=== PATIENT | female | born 1990 | race African-American/Black ===

== ENCOUNTER 2016-09-24 22:47 | Emergency (ER) | payer MEDICAID, OTHER ==
[~2016-09-24] VITALS: Ht 162.6 cm; Wt 110.7 kg
[~2016-09-24 22:47] MED LIST: CIPROFLOXACIN500 M2 ORAL; IBUPROFEN600 MG ORAL; MACROBID100 MG ORAL; METRONIDAZOLE500 MG ORAL; NEXAFED30 MG ORAL; PEPCID40 MG PO; PROMETHAZINE-C118 M1 ORAL
[2016-09-24 23:06] VITALS: BP 116/81
[2016-09-24] MEDS ORDERED: IBUPROFEN600 MG ORAL (23:38)
[2016-09-24] MEDS ORDERED: AZITHROMYCIN250 MG ORAL (23:38)
--- NOTE | 2016-09-24 23:38 | Emergency Room Report ---
History of Present Illness General Chief Complaint: Sore Throat Source: Patient Present Illness HPI Is a 26-year-old female with no past medical history. She presents with chief complaint of sore throat. Woke up this morning with it. Vale swelling on the right side. Denies any fever chills denies any nausea vomiting. Worse with swallowing. Pain is 5/10. Allergies: Coded Allergies: No Known Allergies (Unverified , 11/17/14) Patient History Past Medical History: see triage record, old chart reviewed Past Surgical History: none Pertinent Family History: none Social History: Denies: smoking Last Menstrual Period: September 09 Now: No : 0 Para: 0 Immunizations: other Reviewed Nursing Documentation: PMH: Agreed, PSxH: Agreed Nursing Documentation-PMH Past Medical History: No Stated History Hx Asthma: Yes Hx Gastrointestinal Problems: Yes - ACID REFLUX Review of Systems Eye: Denies: blurred vision, eye pain ENT: Reports: throat swelling, Denies: ear pain, nose congestion Respiratory: Denies: cough, shortness of breath Cardiovascular: Denies: chest pain, palpitations Gastrointestinal: Denies: abdominal pain, diarrhea, nausea, vomiting Musculoskeletal: Denies: back pain, joint pain Skin: Denies: rash Neurological: Denies: headache, numbness Endocrine: Denies: increased thirst, increased urine Hematologic/Lymphatic: Denies: easy bruising All Other Systems: negative except mentioned in HPI Physical Exam Vital Signs Date Time Temp Pulse Resp B/P Pulse Ox O2 Delivery O2 Flow Rate FiO2 09/24/16 22:53 98.4 84 18 116/81 97 Room Air vitals normal. Sp02 EP Interpretation: reviewed, normal General Appearance: well appearing, no apparent distress, alert Head: normocephalic, atraumatic Eyes: bilateral eye EOMI, bilateral eye PERRL ENT: hearing grossly normal, pharyngeal erythema, tonsillar exudate - right Neck: full range of motion, supple, no meningismus Respiratory: chest non-tender, lungs clear, normal breath sounds Cardiovascular #1: regular rate, rhythm, no murmur Gastrointestinal: normal bowel sounds, non tender, no mass, no organomegaly, no bruit, non-distended Musculoskeletal: back normal, gait/station normal, normal range of motion Psychiatric: mood/affect normal Skin: warm/dry Medical Decision Making Diagnostic Impression: Primary Impression: Pharyngitis, acute Qualified Codes: J02.9 - Acute pharyngitis, unspecified ER Course Patient presents with sore throat. Most likely a viral pharyngitis. Could be strep. Notice of peritonsillar abscess, retropharyngeal abscess or neoplastic process. Notice of Fernando angina. We'll discharge him. Last Vital Signs Date Time Temp Pulse Resp B/P Pulse Ox O2 Delivery O2 Flow Rate FiO2 09/24/16 23:06 98.4 80 18 116/81 97 Room Air Status: improved Disposition: HOME, SELF-CARE Condition: Stable Scripts Azithromycin* (ZITHROMAX*) 250 Mg Tablet 250 MG ORAL DAILY, #6 TAB 0 Refills Take two tablets by mouth today, then take one tablet by mouth daily for four days Prov: LISANDRO CISSE M.D. 09/24/16 Ibuprofen* (MOTRIN*) 600 Mg Tablet 600 MG ORAL Q8H Y for For Pain, #30 TAB 0 Refills Prov: LISANDRO CISSE M.D. 09/24/16 Referrals: NON PHYSICIAN (PCP) Patient Instructions: Tonsillitis Additional Instructions: Follow up with your doctor in 7 days. Return if worse. LISANDRO CISSE M.D. Sep 24, 2016 23:38
[2016-09-24 23:58] VITALS: BP 121/85
== END 2016-09-24 23:59 | disposition home or self-care (01) ==
LOC: EMR 23:15
DX: J02.9 Acute pharyngitis, unspecified (principal); Z87.19 Personal history of other diseases of the digestive system; Z87.09 Personal history of other diseases of the respiratory system
CPT/HCPCS: 99284

== ENCOUNTER 2016-10-19 15:29 | Emergency (ER) | payer OTHER ==
[~2016-10-19] VITALS: Ht 162.6 cm; Wt 107.5 kg
[~2016-10-19 15:29] MED LIST changes: +AZITHROMYCIN250 MG ORAL
[2016-10-19] MEDS ORDERED: Lidocaine 2% Visc 15ml soln ORAL ONE (16:30)
[2016-10-19] MEDS ORDERED: Mylanta II UD 30ml ORAL ONE (16:30)
[2016-10-19] MEDS ORDERED: Dicyclomine HCl 10mg/5ml oral soln ORAL ONE (16:30)
[2016-10-19 16:49] LABS: APPEARANCE,URINE SLIGHTLY CLOUDY; KETONES,URINE NEGATIVE (NEGATIVE); LEUKOCYTE ESTERASE ,URINE 2+ (NEGATIVE); NITRITE,URINE POSITIVE (NEGATIVE); PH,URINE 5 (4.5-8.0); PROTEIN,URINE 2+ (NEGATIVE); UROBILINOGEN,URINE NORMAL MG/DL (0.0-1.0)
[2016-10-19 16:53] LABS: BACTERIA,URINE MODERATE /HPF; SQUAMOUS EPITHELIAL CELL,UR FEW /LPF (NONE/OCC)
[2016-10-19] MEDS ORDERED: NITROFURANTOIN100 M2 ORAL (17:33)
[2016-10-19] MEDS ORDERED: ZOFRAN4 M3 ORAL (17:33)
[2016-10-19] MEDS ORDERED: PEPCID20 MG ORAL (17:33)
[2016-10-19 18:00] VITALS: BP 109/74
--- NOTE | 2016-10-19 21:36 | Emergency Room Report ---
History of Present Illness General Chief Complaint: General Complaint Source: Patient Present Illness HPI The patient is a 26-year-old female presenting with dizziness, nausea, and chest burning. The patient states that she has had GERD in the past and this does feel similar. The patient has not tried any medications for this. Patient denies any other symptoms including vomiting, F, chills, LEONARD, blurred vision, abd pain, dysuria, hematuria, back pain, fatigue, CP, palpitations Allergies: Coded Allergies: No Known Allergies (Unverified , 11/17/14) Patient History Past Medical History: see triage record Pertinent Family History: none Last Menstrual Period: 10/07/16 Now: No Reviewed Nursing Documentation: PMH: Agreed, PSxH: Agreed Nursing Documentation-PMH Past Medical History: No History, Except For Hx Asthma: Yes Hx Gastrointestinal Problems: Yes - ACID REFLUX Review of Systems All Other Systems: negative except mentioned in HPI Physical Exam Vital Signs Date Time Temp Pulse Resp B/P Pulse Ox O2 Delivery O2 Flow Rate FiO2 10/19/16 15:59 98.4 96 16 117/78 100 Room Air Sp02 EP Interpretation: reviewed, normal General Appearance: no apparent distress, alert, GCS 15, non-toxic Head: normocephalic, atraumatic Eyes: bilateral eye PERRL, bilateral eye normal inspection ENT: hearing grossly normal, normal pharynx, no angioedema, normal voice Neck: full range of motion, supple/symm/no masses Respiratory: chest non-tender, lungs clear, normal breath sounds, speaking full sentences Cardiovascular #1: regular rate, rhythm, no edema Gastrointestinal: normal bowel sounds, non tender, soft, non-distended, no guarding, no rebound Rectal: deferred Genitourinary: normal inspection, no CVA tenderness Musculoskeletal: back normal, gait/station normal, normal range of motion, non- tender Neurologic: alert, oriented x3, responsive, motor strength/tone normal, sensory intact, speech normal Psychiatric: judgement/insight normal, memory normal, mood/affect normal, no suicidal/homicidal ideation Skin: normal color, no rash, warm/dry, well hydrated Lymphatic: no adenopathy Medical Decision Making PA Attestation Dr. Francis is my supervising physician. Patient management was discussed with my supervising physician Diagnostic Impression: Primary Impression: Urinary tract infection Additional Impression: GERD (gastroesophageal reflux disease) ER Course The patient is a 26-year-old female presenting with dizziness, nausea, and chest burning Differential diagnosis considered but not limited to: UTI, vaginitis, pyelonephritis, , GERD PE: Vitals within normal limits. No apparent distress HEENT exam: Unremarkable. Lungs CTA bilat. RRR Abdomen is soft and nontender. Normal bowel sounds. No CVA tenderness Urinalysis is consistent with UTI. The patient was given a GI cocktail and Reglan and is feeling better. Patient will be discharged home with a prescription for Macrobid, zofran, and Pepcid. ER precautions are given Laboratory Tests Test 10/19/16 16:26 Urine Color Pale yellow Urine Appearance Slightly cloudy Urine pH 5 (4.5-8.0) Urine Specific Johnson 1.020 (1.005-1.035) Urine Protein 2+ (NEGATIVE) H Urine Glucose (UA) Negative (NEGATIVE) Urine Ketones Negative (NEGATIVE) Urine Occult Blood 3+ (NEGATIVE) H Urine Nitrite Positive (NEGATIVE) H Urine Bilirubin Negative (NEGATIVE) Urine Urobilinogen Normal MG/DL (0.0-1.0) Urine Leukocyte Esterase 2+ (NEGATIVE) H Urine RBC 10-15 /HPF (0 - 2) H Urine WBC 5-10 /HPF (0 - 2) H Urine Squamous Epithelial Cells Few /LPF (NONE/OCC) Urine Bacteria Moderate /HPF (NONE) H Urine HCG, Qualitative Negative Lab Results Impression UA: consistent with UTI. Neg preg Last Vital Signs Date Time Temp Pulse Resp B/P Pulse Ox O2 Delivery O2 Flow Rate FiO2 10/19/16 18:00 89 16 109/74 100 Room Air 10/19/16 17:59 98.4 Status: improved Disposition: HOME, SELF-CARE Condition: Improved Scripts Famotidine (PEPCID) 20 Mg Tablet 20 MG ORAL DAILY, #7 TAB 0 Refills Prov: TERZIAN,ANJALI P.A. 10/19/16 Ondansetron* (ZOFRAN*) 4 Mg Tablet 4 MG ORAL Q6H Y for Nausea & Vomiting, #15 TAB Prov: TERZIAN,ANJALI P.A. 10/19/16 Nitrofurantoin Monohyd/M-Cryst* (MACROBID 100 MG*) 100 Mg Capsule 100 MG ORAL EVERY 12 HOURS, #14 CAP Prov: TERZIAN,ANJALI P.A. 10/19/16 Referrals: [facility]ERR[facility] (PCP) Patient Instructions: Urinary Tract Infection, Indigestion Additional Instructions: I discussed my findings with the patient. All questions and concerns have been answered. Treatment and medication compliance have been addressed. I advised the patient that they need to follow up with PMD in 3-5 days. Return to ED if symptoms worsen, new symptoms arise, or if needed for any reason. Patient verbalized understanding of discharge instructions. ANJALI MEJIAS Oct 19, 2016 21:36
== END 2016-10-19 18:01 | disposition home or self-care (01) ==
LOC: EMR 17:37
DX: N39.0 Urinary tract infection, site not specified (principal); K21.9 Gastro-esophageal reflux disease without esophagitis; R42 Dizziness and giddiness; R11.0 Nausea; J45.909 Unspecified asthma, uncomplicated
CPT/HCPCS: 81003; 81025; 87086; 87181; 99284

== ENCOUNTER 2016-11-10 20:54 | Emergency (ER) | payer OTHER ==
[~2016-11-10] VITALS: Ht 162.6 cm; Wt 106.6 kg
[~2016-11-10 20:54] MED LIST changes: +NITROFURANTOIN100 M2 ORAL; +PEPCID20 MG ORAL; +ZOFRAN4 M3 ORAL
[2016-11-10] MEDS ORDERED: Bacitracin Oint UD TOPIC ONE ×2 (21:56→22:00)
[2016-11-10 22:04] VITALS: BP 119/72
[2016-11-10 22:05] VITALS: BP 116/69
--- NOTE | 2016-11-11 01:42 | Emergency Room Report ---
History of Present Illness General Chief Complaint: Laceration Source: Patient Present Illness HPI 26-year-old female presents to ED with laceration to the right wrist. Patient states she had a mechanical fall in the bathroom today and cut her wrist on broken glass. Tetanus unknown. Denies any pain. Notes some bleeding initially which has subsided. Denies any other injuries. No other aggravating relieving factors. Denies any other associated symptoms Allergies: Coded Allergies: No Known Allergies (Unverified , 11/17/14) Patient History Past Medical History: asthma, GERD Past Surgical History: none Pertinent Family History: none Social History: Denies: alcohol use, drug use, smoking Now: No Immunizations: UTD Reviewed Nursing Documentation: PMH: Agreed, PSxH: Agreed Nursing Documentation-PMH Past Medical History: No Stated History Hx Asthma: Yes Hx Gastrointestinal Problems: Yes - ACID REFLUX Review of Systems All Other Systems: negative except mentioned in HPI Physical Exam Vital Signs Date Time Temp Pulse Resp B/P Pulse Ox O2 Delivery O2 Flow Rate FiO2 11/10/16 21:06 98.4 111 15 116/69 98 Room Air Sp02 EP Interpretation: reviewed, normal General Appearance: no apparent distress, alert, GCS 15, non-toxic, obese Head: normocephalic Eyes: bilateral eye PERRL, bilateral eye normal inspection ENT: normal ENT inspection Neck: normal inspection Respiratory: normal inspection Cardiovascular #1: normal inspection Gastrointestinal: normal inspection Rectal: deferred Genitourinary: no CVA tenderness Musculoskeletal: back normal, gait/station normal, normal range of motion, non- tender Neurologic: alert, oriented x3, responsive, motor strength/tone normal, sensory intact, speech normal Psychiatric: normal inspection Skin: laceration - 3cm superficial laceration to R wrist. no active bleeding Lymphatic: normal inspection Medical Decision Making Diagnostic Impression: Primary Impression: Laceration ER Course Hospital Course 26-year-old F presents to ED s/p laceration R wrist s/p fall Clinical course Patient placed on stretcher. After initial history and physical I ordered tetanus shot. Wound is irrigated. The laceration is very superficial and does not require sutures. Steri-Strips and dressings applied Diagnosis - laceration Stable and discharged to home. wound Care instructions given. Followup with PMD. Return to ED if any signs of infection develop Last Vital Signs Date Time Temp Pulse Resp B/P Pulse Ox O2 Delivery O2 Flow Rate FiO2 11/10/16 22:05 98.4 15 116/69 98 Room Air 11/10/16 22:04 106 Status: improved Disposition: HOME, SELF-CARE Condition: Stable Referrals: NON PHYSICIAN (PCP) Patient Instructions: Nonsutured Laceration Care TOM MACHADO M.D. Nov 11, 2016 01:42
== END 2016-11-10 22:15 | disposition home or self-care (01) ==
LOC: EMR 21:40
DX: S61.511A Laceration without foreign body of right wrist, initial encounter (principal); J45.909 Unspecified asthma, uncomplicated; K21.9 Gastro-esophageal reflux disease without esophagitis; W01.110A Fall on same level from slipping, tripping and stumbling with subsequent striking against sharp glass, initial encounter; Y92.002 Bathroom of unspecified non-institutional (private) residence as the place of occurrence of the external cause; Y99.8 Other external cause status
CPT/HCPCS: 99283

== ENCOUNTER 2017-01-14 20:53 | Emergency (ER) | payer OTHER ==
[~2017-01-14] VITALS: Ht 162.6 cm; Wt 108.9 kg
--- NOTE | 2017-01-14 21:23 | Emergency Room Report ---
History of Present Illness General Chief Complaint: Flu Like Symptoms Source: Patient Present Illness HPI Is a 26-year-old female with history of asthma as a kid. She's on any medication right now. She presents with chief complaint of coughing congestion. Onset 3 days ago. She does have a coworker who is sick with bronchitis. No nausea no vomiting. Cough is nonproductive in nature. No fever or chills. No abdominal pain. Allergies: Coded Allergies: No Known Allergies (Unverified , 11/17/14) Patient History Past Medical History: see triage record, old chart reviewed Past Surgical History: other Pertinent Family History: none Social History: Denies: smoking Last Menstrual Period: December Now: No Immunizations: other Reviewed Nursing Documentation: PMH: Agreed, PSxH: Agreed Nursing Documentation-PMH Hx Asthma: Yes Hx Gastrointestinal Problems: Yes - ACID REFLUX Review of Systems Eye: Denies: blurred vision, eye pain ENT: Denies: ear pain, nose congestion, throat swelling Respiratory: Reports: cough, shortness of breath Cardiovascular: Denies: chest pain, palpitations Gastrointestinal: Denies: abdominal pain, diarrhea, nausea, vomiting Musculoskeletal: Denies: back pain, joint pain Skin: Denies: rash Neurological: Denies: headache, numbness Endocrine: Denies: increased thirst, increased urine Hematologic/Lymphatic: Denies: easy bruising All Other Systems: negative except mentioned in HPI Physical Exam Vital Signs Date Time Temp Pulse Resp B/P Pulse Ox O2 Delivery O2 Flow Rate FiO2 01/14/17 21:00 98.6 101 20 127/81 98 Room Air vitals normal Sp02 EP Interpretation: reviewed, normal General Appearance: well appearing, no apparent distress, alert Head: normocephalic, atraumatic Eyes: bilateral eye EOMI, bilateral eye PERRL ENT: hearing grossly normal, normal pharynx Neck: full range of motion, supple, no meningismus Respiratory: chest non-tender, lungs clear, normal breath sounds Cardiovascular #1: regular rate, rhythm, no murmur Gastrointestinal: normal bowel sounds, non tender, no mass, no organomegaly, no bruit, non-distended Musculoskeletal: back normal, gait/station normal, normal range of motion Psychiatric: mood/affect normal Skin: warm/dry Medical Decision Making Diagnostic Impression: Primary Impression: Acute viral bronchitis ER Course Patient presents with a viral bronchitis. No evidence of pneumonia. Notice any sepsis. Because of her asthma history. We'll put her on inhaler. I also will prescribe prednisone. Told patient to take this if symptoms don't improve after 2 days. No evidence of ACS, PE, pneumonia to name a few. Last Vital Signs Date Time Temp Pulse Resp B/P Pulse Ox O2 Delivery O2 Flow Rate FiO2 01/14/17 21:00 98.6 101 20 127/81 98 Room Air Status: unchanged Disposition: HOME, SELF-CARE Condition: Stable Scripts Pseudoephedrine Hcl* (NEXAFED*) 30 Mg Tablet 60 MG ORAL Q6H Y for congestion, #30 TAB Prov: LISANDRO CISSE M.D. 01/14/17 Prednisone* (PREDNISONE*) 20 Mg Tablet 60 MG ORAL DAILY, #15 TAB Prov: LISANDRO CISSE M.D. 01/14/17 Albuterol Sulfate* (ALBUTEROL SULFATE MDI*) 8.5 Gm Hfa.aer.ad 2 PUFF INH Q4H Y for cough/wheezing, #1 EA 0 Refills Prov: LISANDRO CISSE M.D. 01/14/17 Additional Instructions: Followup with your DrTracie in 7 days. Return if worse. LISANDRO CISSE M.D. Jan 14, 2017 21:23
[2017-01-14] MEDS ORDERED: ALBUTEROL SULF8.5 GM INH (21:26)
[2017-01-14] MEDS ORDERED: PREDNISONE20 MG ORAL (21:26)
[2017-01-14] MEDS ORDERED: NEXAFED30 MG ORAL (21:26)
[2017-01-14 21:51] VITALS: BP 127/88
== END 2017-01-14 21:51 | disposition home or self-care (01) ==
LOC: EMR 21:50
DX: J20.8 Acute bronchitis due to other specified organisms (principal); J45.909 Unspecified asthma, uncomplicated; K21.9 Gastro-esophageal reflux disease without esophagitis
CPT/HCPCS: 99284

== ENCOUNTER 2017-02-17 13:35 | Emergency (ER) | payer OTHER ==
[~2017-02-17] VITALS: Ht 162.6 cm; Wt 108.9 kg
[~2017-02-17 13:35] MED LIST changes: +ALBUTEROL SULF8.5 GM INH; +PREDNISONE20 MG ORAL
[2017-02-17] MEDS ORDERED: TRI-LINYAH1 EACH PO (13:51)
[2017-02-17] MEDS ORDERED: NEXIUM20 M1 ORAL (13:51)
[2017-02-17 13:54] VITALS: BP 120/84
[2017-02-17] MEDS ORDERED: Ondansetron ODT 8mg tab ORAL ONE (14:15)
[2017-02-17] MEDS ORDERED: Norco 5mg/325mg tab ORAL ONE (14:15)
--- NOTE | 2017-02-17 14:51 | Emergency Room Report ---
History of Present Illness General Chief Complaint: Pain Source: Patient Present Illness HPI patient is a 26-year-old female presenting with left lower extremity, calf pain. Patient denies any trauma. She is taking Dilaudid at home without any relief. The patient states it's worse with ambulation, there are no alleviating factors. She feels like her left calf is mildly swollen compared to the right. Denies any rash or redness. Allergies: Coded Allergies: No Known Allergies (Unverified , 11/17/14) Patient History Past Medical History: other - sickle trait Past Surgical History: none Pertinent Family History: none Last Menstrual Period: 01/27/17 Now: No Nursing Documentation-[facility] [place] Past Medical History: No Stated History Hx Asthma: Yes Hx Gastrointestinal Problems: Yes - ACID REFLUX Review of Systems Constitutional: Denies: chills, fever Respiratory: Denies: cough Musculoskeletal: Reports: see HPI Skin: Denies: change in color, rash Physical Exam Vital Signs Date Time Temp Pulse Resp B/P Pulse Ox O2 Delivery O2 Flow Rate FiO2 02/17/17 13:44 98.6 90 16 120/84 98 Room Air Sp02 EP Interpretation: reviewed, normal General Appearance: normal inspection, well appearing, no apparent distress Musculoskeletal: normal inspection, calf tenderness, swelling Neurologic: motor strength/tone normal, sensory intact Skin: normal inspection, normal color, no rash Medical Decision Making Diagnostic Impression: Primary Impression: Muscle strain ER Course patient is a 26-year-old female who presents with left calf pain. She states the pain worse with ambulation or putting pressure on the leg. Given her history of oral contraceptives I was concerned for DVT. The patient had an ultrasound performed in the department which showed no evidence of DVT. At this point I feel comfortable sending the patient home to follow with her primary care physician. Last Vital Signs Date Time Temp Pulse Resp B/P Pulse Ox O2 Delivery O2 Flow Rate FiO2 02/17/17 13:54 98.6 90 16 120/84 98 Room Air Disposition: HOME, SELF-CARE Condition: Stable SAMMIE SHOEMAKER Feb 17, 2017 14:51
[2017-02-17] MEDS ORDERED: PROMETHAZINE-C118 M1 ORAL (17:06)
[2017-02-17] MEDS ORDERED: NORCO 5-325 TA1 EACH ORAL (17:07)
[2017-02-17 17:11] VITALS: BP 147/75
--- NOTE | 2017-02-18 14:27 | Diagnostic Imaging Report ---
APPROVED REPORT CPT Code: 83311 Present Symptoms Comments: Pain LEFT LEG: Venous imaging reveals a patent deep venous system. There is no evidence of thrombus within the femoral, popliteal or tibial segments. The greater saphenous vein is also within normal limits. Doppler indicates normal spontaneous flow within these segments.
== END 2017-02-17 17:20 | disposition home or self-care (01) ==
LOC: EMR 14:05
DX: S86.112A Strain of other muscle(s) and tendon(s) of posterior muscle group at lower leg level, left leg, initial encounter (principal); X58.XXXA Exposure to other specified factors, initial encounter; Y92.9 Unspecified place or not applicable; J45.909 Unspecified asthma, uncomplicated; K21.9 Gastro-esophageal reflux disease without esophagitis; R21 Rash and other nonspecific skin eruption
CPT/HCPCS: 93971; 99284; Q0162

== ENCOUNTER 2017-02-19 20:16 | Emergency (ER) | payer OTHER ==
[~2017-02-19] VITALS: Ht 162.6 cm; Wt 108.9 kg
[~2017-02-19 20:16] MED LIST changes: +NEXIUM20 M1 ORAL; +NORCO 5-325 TA1 EACH ORAL; +TRI-LINYAH1 EACH PO
[2017-02-19 20:50] VITALS: BP 112/76
[2017-02-19] MEDS ORDERED: Albuterol ud Inhalation HHN ONE (21:00)
[2017-02-19] MEDS ORDERED: Ipratropium 0.02% Inh Soln 2.5ml UD HHN ONE (21:00)
[2017-02-19] MEDS ORDERED: PredniSONE 20mg tab ORAL ONE (21:00)
[2017-02-19] MEDS ORDERED: PREDNISONE20 MG ORAL (21:34)
[2017-02-19] MEDS ORDERED: ALBUTEROL SULF8.5 GM INH (21:34)
[2017-02-19] MEDS ORDERED: PROMETHAZINE-C118 M1 ORAL (21:34)
[2017-02-19] MEDS ORDERED: NEXAFED30 MG ORAL (21:34)
[2017-02-19 22:00] VITALS: BP 112/76
--- NOTE | 2017-02-20 13:07 | Diagnostic Imaging Report ---
Indication: PAIN Technique: 3 views of the left ankle Comparison: none Findings: No acute fractures. No dislocations. Joint spaces are preserved. Normal mineralization. No radiopaque foreign body. Impression: Negative
--- NOTE | 2017-02-20 15:00 | Emergency Room Report ---
History of Present Illness General Chief Complaint: Upper Respiratory Illness Source: Patient Present Illness HPI 26-year-old female presents to ED complaining of cough times one week. Notes cough with yellowish sputum. Worse at night. Notes history of asthma as a child but is not using inhaler currently. States she had a similar episode in January and was noted to have bronchitis. Patient states her symptoms did resolve completely but only return one week ago. Denies fevers or chills. Denies sick contacts or recent travel. Patient is also complaining of left ankle pain. States that she's been having this pain for a few days. Was here 2 days ago for the pain. Ultrasound of her leg which was "normal" and she was discharged home. States the pain persists. 03/21, sharp, radiating up the calf. No other aggravating or relieving factors. Denies any other associated symptoms Allergies: Coded Allergies: No Known Allergies (Unverified , 11/17/14) Patient History Past Medical History: asthma, GERD Past Surgical History: none Pertinent Family History: none Social History: Denies: alcohol use, drug use, smoking Last Menstrual Period: 01/27/17 Now: No Immunizations: UTD Reviewed Nursing Documentation: PMH: Agreed, PSxH: Agreed Nursing Documentation-PMH Past Medical History: No History, Except For Hx Asthma: Yes Hx Gastrointestinal Problems: Yes - ACID REFLUX Review of Systems All Other Systems: negative except mentioned in HPI Physical Exam Vital Signs Date Time Temp Pulse Resp B/P Pulse Ox O2 Delivery O2 Flow Rate FiO2 02/19/17 20:25 98.8 95 16 112/76 98 Room Air 02/19/17 21:00 21 Sp02 EP Interpretation: reviewed, normal General Appearance: no apparent distress, alert, GCS 15, non-toxic, obese Head: normocephalic Eyes: bilateral eye PERRL, bilateral eye normal inspection ENT: normal ENT inspection Neck: normal inspection Respiratory: chest non-tender, lungs clear, normal breath sounds, speaking full sentences Cardiovascular #1: regular rate, rhythm, no edema Gastrointestinal: normal inspection Rectal: deferred Genitourinary: no CVA tenderness Musculoskeletal: tender - L ankle Neurologic: alert, oriented x3, responsive, motor strength/tone normal, sensory intact, speech normal Psychiatric: judgement/insight normal, memory normal, mood/affect normal, no suicidal/homicidal ideation Skin: normal inspection Lymphatic: normal inspection Procedures Splinting Splinting : Consent: Verbal Pre-Made Type: JANES wrap - L ankle Pre-Proc Neuro Vasc Exam: normal Post-Proc Neuro Vasc Exam: normal Patient Tolerated: Well Complications: None Medical Decision Making Diagnostic Impression: Primary Impression: Bronchitis Additional Impression: Ankle pain, left Qualified Codes: M25.572 - Pain in left ankle and joints of left foot ER Course Hospital Course 26-year-old female presents to ED complaining of cough x 1 week. c/o L ankle pain Differential diagnoses include: URI, bronchitis, asthma/COPD, pneumonia Clinical course Patient placed on stretcher. After initial history and physical I ordered nebulizer treatment. Upon reassessment patient states cough and symptoms have improved. Findings consistent with bronchitis. Patient is complaining of pain to her left ankle. I reviewed EMR. Patient had ultrasound of her left leg; concern for potential DVT as patient takes oral contraceptives. DVT study was negative I ordered x-ray of the left ankle which was unremarkable. Placed in Janes wrap Diagnosis - bronchitis , left ankle pain Stable and discharged home with prescriptions for Rx prednisone, cough syrup, pseudoephedrine, albuterol. Instructed to followup with PMD. Return to ED if symptoms recur or worsen Other X-Ray Diagnostic Results Other X-Ray Diagnostic Results : X-Ray ordered: L ankle # of Views/Limited Vs Complete: 3 View Indication: Pain EP Interpretation: Yes Interpretation: no dislocation, no soft tissue swelling, no fractures Impression: No acute disease Interpreting ER Provider: electronically signed by Tom Francis mD Last Vital Signs Date Time Temp Pulse Resp B/P Pulse Ox O2 Delivery O2 Flow Rate FiO2 02/19/17 22:00 98.8 95 20 112/76 98 Room Air 21 Status: improved Disposition: HOME, SELF-CARE Condition: Stable Scripts Codeine/Promethazine Hcl* (PROMETHAZINE-CODEINE SYRUP*) 118 Ml Syrup 5 ML ORAL Q4H Y for For Cough, #118 ML 0 Refills Prov: TOM FRANCIS M.D. 02/19/17 Pseudoephedrine Hcl* (NEXAFED*) 30 Mg Tablet 30 MG ORAL Q6H Y for congestion, #30 TAB Prov: TOM FRANCIS M.D. 02/19/17 Prednisone* (PREDNISONE*) 20 Mg Tablet 40 MG ORAL DAILY, #10 TAB Prov: TOM FRANCIS M.D. 02/19/17 Albuterol Sulfate* (ALBUTEROL SULFATE MDI*) 8.5 Gm Hfa.aer.ad 2 PUFF INH Q4H Y for cough/wheezing, #1 EA 0 Refills Prov: TOM FRANCIS M.D. 02/19/17 Patient Instructions: Acute Bronchitis, [id number] TOM FRANCIS M.D. Feb 20, 2017 15:00
== END 2017-02-19 22:15 | disposition home or self-care (01) ==
LOC: EMR 20:46
DX: J20.9 Acute bronchitis, unspecified (principal); M25.572 Pain in left ankle and joints of left foot; J45.909 Unspecified asthma, uncomplicated; K21.9 Gastro-esophageal reflux disease without esophagitis
CPT/HCPCS: 29540; 94640; 99284

== ENCOUNTER 2017-02-28 20:54 | Emergency (ER) | payer OTHER ==
[~2017-02-28] VITALS: Ht 162.6 cm; Wt 108.9 kg
[2017-02-28] MEDS ORDERED: IBUPROFEN600 MG ORAL (21:31)
--- NOTE | 2017-02-28 21:32 | Emergency Room Report ---
History of Present Illness General Chief Complaint: Earache Source: Patient Present Illness HPI This is a 26-year-old female with a history of asthma. She presents with chief complaint of ear pain. Onset for the last few days. Does have congestion and cough. Pain is 7/10. Localized the left ear. No fever or chills. Here with 3 other siblings who have the same symptom. No other complaint. Allergies: Coded Allergies: No Known Allergies (Unverified , 11/17/14) Patient History Past Medical History: see triage record, old chart reviewed, asthma Past Surgical History: none Pertinent Family History: none Social History: Denies: drug use Last Menstrual Period: 02/24/17 Now: No Immunizations: other Reviewed Nursing Documentation: PMH: Agreed, PSxH: Agreed Nursing Documentation-PMH Past Medical History: No History, Except For Hx Gastrointestinal Problems: Yes - ACID REFLUX Review of Systems Eye: Denies: blurred vision, eye pain ENT: Reports: ear pain, Denies: nose congestion, throat swelling Respiratory: Denies: cough, shortness of breath Cardiovascular: Denies: chest pain, palpitations Gastrointestinal: Denies: abdominal pain, diarrhea, nausea, vomiting Musculoskeletal: Denies: back pain, joint pain Skin: Denies: rash Neurological: Denies: headache, numbness Endocrine: Denies: increased thirst, increased urine Hematologic/Lymphatic: Denies: easy bruising All Other Systems: negative except mentioned in HPI Physical Exam Vital Signs Date Time Temp Pulse Resp B/P Pulse Ox O2 Delivery O2 Flow Rate FiO2 02/28/17 21:14 98.4 108 16 124/69 100 Room Air vital unremarkable Sp02 EP Interpretation: reviewed, normal General Appearance: well appearing, no apparent distress, alert Head: normocephalic, atraumatic Eyes: bilateral eye EOMI, bilateral eye PERRL ENT: hearing grossly normal, normal pharynx Neck: full range of motion, supple, no meningismus Respiratory: chest non-tender, lungs clear, normal breath sounds Cardiovascular #1: regular rate, rhythm, no murmur Gastrointestinal: normal bowel sounds, non tender, no mass, no organomegaly, no bruit, non-distended Musculoskeletal: back normal, gait/station normal, normal range of motion Psychiatric: mood/affect normal Skin: warm/dry Medical Decision Making Diagnostic Impression: Primary Impression: Earache, left Additional Impression: Viral illness ER Course Patient with ear pain. No evidence of bacterial infection. Lungs are clear. We'll discharge home. Last Vital Signs Date Time Temp Pulse Resp B/P Pulse Ox O2 Delivery O2 Flow Rate FiO2 02/28/17 21:14 98.4 108 16 124/69 100 Room Air Status: improved Disposition: HOME, SELF-CARE Condition: Stable Scripts Ibuprofen* (MOTRIN*) 600 Mg Tablet 600 MG ORAL Q8H Y for For Pain, #30 TAB 0 Refills Prov: LISANDRO CISSE M.D. 02/28/17 Patient Instructions: Earache Additional Instructions: Followup with your Dr. in 7 days. Take Sudafed as needed. Return if symptom worsen. LISANDRO CISSE M.D. Feb 28, 2017 21:32
[2017-02-28 21:39] VITALS: BP 124/69
== END 2017-02-28 21:52 | disposition home or self-care (01) ==
LOC: EMR 21:30
DX: H92.02 Otalgia, left ear (principal); B34.9 Viral infection, unspecified
CPT/HCPCS: 99283

== ENCOUNTER 2017-03-20 22:04 | Emergency (ER) | payer OTHER ==
[~2017-03-20] VITALS: Ht 165.1 cm; Wt 102.1 kg
[2017-03-20 22:15] VITALS: BP 128/80
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
[2017-03-20] MEDS ORDERED: IBUPROFEN600 MG ORAL (22:32)
[2017-03-20] MEDS ORDERED: TRAMADOL HCL50 MG ORAL (22:32)
[2017-03-20 22:40] VITALS: BP 131/74
== END 2017-03-20 22:40 | disposition home or self-care (01) ==
LOC: EMR 22:30
DX: S13.9XXA Sprain of joints and ligaments of unspecified parts of neck, initial encounter (principal); S16.1XXA Strain of muscle, fascia and tendon at neck level, initial encounter; S39.012A Strain of muscle, fascia and tendon of lower back, initial encounter; V43.52XA Car driver injured in collision with other type car in traffic accident, initial encounter; Y92.414 Local residential or business street as the place of occurrence of the external cause
CPT/HCPCS: 99284

== ENCOUNTER 2017-03-30 15:48 | Emergency (ER) | payer OTHER ==
[~2017-03-30] VITALS: Ht 162.6 cm; Wt 104.3 kg
[~2017-03-30 15:48] MED LIST changes: +TRAMADOL HCL50 MG ORAL
[2017-03-30] MEDS ORDERED: IBUPROFEN600 MG ORAL (16:58)
[2017-03-30] MEDS ORDERED: ROBAXIN-750750 MG PO (16:58)
[2017-03-30] MEDS ORDERED: AMOXICILLIN500 MG ORAL (16:58)
[2017-03-30 17:10] VITALS: BP 108/79
[2017-03-30 18:06] VITALS: BP 108/79
--- NOTE | 2017-03-30 18:56 | Emergency Room Report ---
History of Present Illness General Chief Complaint: Pain Source: Patient Present Illness HPI The patient is a 26-year-old female presenting with left-sided headache and neck pain after she states she slipped and fell into a wall yesterday. She denies loss of consciousness or fallen to the ground. She denies any other injury. Pain is described as a 9/10 dull ache primarily to the left head and left neck. Pain worse with movement. She denies any other symptoms including N , V, F, chills, dizziness, blurred vision, memory loss Allergies: Coded Allergies: No Known Allergies (Unverified , 11/17/14) Patient History Past Medical History: see triage record Pertinent Family History: none Last Menstrual Period: 03/24/17 Now: No Reviewed Nursing Documentation: PMH: Agreed, PSxH: Agreed Nursing Documentation-PMH Hx Gastrointestinal Problems: Yes - ACID REFLUX Review of Systems All Other Systems: negative except mentioned in HPI Physical Exam Vital Signs Date Time Temp Pulse Resp B/P Pulse Ox O2 Delivery O2 Flow Rate FiO2 03/30/17 15:54 99.0 84 15 108/79 98 Room Air Sp02 EP Interpretation: reviewed, normal General Appearance: no apparent distress, alert, GCS 15, non-toxic Head: normocephalic, atraumatic, other - TTP over the L parietal region Eyes: bilateral eye PERRL, bilateral eye normal inspection Neck: tender lateral - TTP over the L cervical paraspinal muscles Respiratory: chest non-tender, lungs clear, normal breath sounds, speaking full sentences Musculoskeletal: back normal, gait/station normal, normal range of motion Neurologic: alert, oriented x3, responsive, motor strength/tone normal, sensory intact, speech normal Psychiatric: judgement/insight normal, memory normal, mood/affect normal, no suicidal/homicidal ideation Skin: normal color, no rash, warm/dry, well hydrated Medical Decision Making PA Attestation Dr. Francis is my supervising physician. Patient management was discussed with my supervising physician Diagnostic Impression: Primary Impression: Scalp contusion Qualified Codes: S00.03XA - Contusion of scalp, initial encounter Additional Impressions: Muscle strain Lip laceration Qualified Codes: S01.511A - Laceration without foreign body of lip, initial encounter ER Course The patient is a 26-year-old female presenting with left-sided headache and neck pain Differential diagnoses considered but not limited to: concussion, contusion, Cervical strain, disc herniation, fracture PE: vitals WNL. NAD Head is normocephalic atraumatic. There is tenderness to palpation over the left parietal region. No depression. There is a < 1 cm puncture wound of the L lower lip. No bleeding. Neck: No midline tenderness. There is tender to palpation over the left paraspinal muscles. Full active range of motion. The wound is cleaned with Betadine. She is given a prescription for amoxicillin, Motrin, and robaxin. She is to follow up with primary doctor. ER precautions given Last Vital Signs Date Time Temp Pulse Resp B/P Pulse Ox O2 Delivery O2 Flow Rate FiO2 03/30/17 18:06 99.0 15 108/79 98 Room Air 03/30/17 15:54 84 Status: improved Disposition: HOME, SELF-CARE Condition: Improved Scripts Amoxicillin* (AMOXIL*) 500 Mg Capsule 500 MG ORAL EVERY 8 HOURS, #21 CAP Prov: ANJALI MEJIAS.A. 03/30/17 Methocarbamol* (ROBAXIN-750*) 750 Mg Tablet 750 MG PO TID, #21 TAB 0 Refills Prov: TERZIANANJALI P.A. 03/30/17 Ibuprofen* (MOTRIN*) 600 Mg Tablet 600 MG ORAL Q8H Y for For Pain, #30 TAB 0 Refills Prov: TERSHRUTHIANANJALI P.A. 03/30/17 Patient Instructions: Facial or Scalp Contusion, Muscle Strain Additional Instructions: I discussed my findings with the patient. All questions and concerns have been answered. Treatment and medication compliance have been addressed. I advised the patient that they need to follow up with PMD in 3-5 days. Return to ED if symptoms worsen, new symptoms arise, or if needed for any reason. Patient verbalized understanding of discharge instructions. ANJALI MEJIAS Mar 30, 2017 18:56
== END 2017-03-30 17:20 | disposition home or self-care (01) ==
LOC: EMR 16:08
DX: S00.03XA Contusion of scalp, initial encounter (principal); S01.511A Laceration without foreign body of lip, initial encounter; S16.1XXA Strain of muscle, fascia and tendon at neck level, initial encounter; W01.0XXA Fall on same level from slipping, tripping and stumbling without subsequent striking against object, initial encounter; Y92.89 Other specified places as the place of occurrence of the external cause
CPT/HCPCS: 99284

== ENCOUNTER 2017-05-07 19:18 | Emergency (ER) | payer MEDICAID, OTHER ==
[~2017-05-07] VITALS: Ht 162.6 cm; Wt 112.0 kg
[~2017-05-07 19:18] MED LIST changes: +AMOXICILLIN500 MG ORAL; +ROBAXIN-750750 MG PO
[2017-05-07 19:41] VITALS: BP 119/86
[2017-05-07] MEDS ORDERED: PREDNISONE20 MG ORAL (20:02)
[2017-05-07] MEDS ORDERED: ROBITUSSIN COU237 M1 PO (20:02)
[2017-05-07] MEDS ORDERED: PSEUDOEPHEDRINE30 MG PO (20:02)
[2017-05-07] MEDS ORDERED: IBUPROFEN600 MG ORAL (20:02)
[2017-05-07 20:07] VITALS: BP 119/86
--- NOTE | 2017-05-07 20:46 | Emergency Room Report ---
History of Present Illness General Chief Complaint: Flu Like Symptoms Source: Patient Present Illness [facility] The patient is a 26-year-old female presenting with a feeling of chest congestion and productive cough since yesterday. She denies any known sick contacts recent travel. She describes pain as an 8/10 dull ache to the throat and mid chest which occurs only with coughing. She denies any fever or chills. She denies any other symptoms including nausea, vomiting, dizziness, neck pain or stiffness, rash, abdominal pain Allergies: Coded Allergies: No Known Allergies (Unverified , 11/17/14) Patient History Past Medical History: see triage record Pertinent Family History: none Reviewed Nursing Documentation: PMH: Agreed, PSxH: Agreed Nursing Documentation-PMH Past Medical History: No History, Except For Hx Asthma: Yes - Bronchitis Hx Gastrointestinal Problems: Yes - ACID REFLUX Review of Systems All Other Systems: negative except mentioned in HPI Physical Exam Vital Signs Date Time Temp Pulse Resp B/P (MAP) Pulse Ox O2 Delivery O2 Flow Rate FiO2 05/07/17 19:21 99.0 121 18 119/86 97 Room Air Sp02 EP Interpretation: reviewed, normal General Appearance: no apparent distress, alert, GCS 15, non-toxic Head: normocephalic, atraumatic Eyes: bilateral eye normal inspection, bilateral eye PERRL ENT: hearing grossly normal, no angioedema, normal voice, TMs + canals normal, uvula midline, nasal congestion, pharyngeal erythema Neck: full range of motion, supple/symm/no masses Respiratory: chest non-tender, lungs clear, normal breath sounds, speaking full sentences Cardiovascular #1: regular rate, rhythm, no edema Neurologic: alert, oriented x3, responsive, motor strength/tone normal, sensory intact, normal gait, speech normal Psychiatric: judgement/insight normal, memory normal, mood/affect normal, no suicidal/homicidal ideation Skin: normal color, no rash, warm/dry, well hydrated Lymphatic: no adenopathy Medical Decision Making PA Attestation Dr. Herman is my supervising physician. Patient management was discussed with my supervising physician Diagnostic Impression: Primary Impression: Pharyngitis, acute Qualified Codes: J02.9 - Acute pharyngitis, unspecified ER Course The patient is a 26-year-old female presenting with a feeling of chest congestion and productive cough Differential diagnosis include but not limited to pharyngitis, sinusitis, AOM, bronchitis, PNA, sinusitis, PE: afebrile. NAD HEENT exam: There is pharyngeal erythema and nasal congestion. Otherwise unremarkable. No lymphadenopathy. No tonsillar exudates or edema. No tenderness to palpation over sinuses Lungs clear to auscultation bilaterally The patient will be discharged home and given prescriptions for symptomatic treatment. This is likely viral and the patient is not given prescription for antibiotics at this time. She is given ER precautions and needs to follow up with her primary doctor Last Vital Signs Date Time Temp Pulse Resp B/P (MAP) Pulse Ox O2 Delivery O2 Flow Rate FiO2 05/07/17 19:21 99.0 121 18 119/86 97 Room Air Status: improved Disposition: HOME, SELF-CARE Condition: Improved Scripts Guaifenesin/Dextromethorphan (ROBITUSSIN COUGH-CHEST DM LIQ) 237 Ml Liquid 10 ML PO Q4HR, #237 ML Prov: ANJALI MEJIAS P.A. 05/07/17 Prednisone* (PREDNISONE*) 20 Mg Tablet 20 MG ORAL DAILY, #10 TAB 0 Refills Prov: TERANJALI CARO P.A. 05/07/17 Pseudoephedrine Hcl* (SUDAFED*) 30 Mg Tablet 30 MG PO Q6H, #30 TAB Prov: TERSHRUTHIANANJALI P.A. 05/07/17 Ibuprofen* (MOTRIN*) 600 Mg Tablet 600 MG ORAL Q8H Y for For Pain, #30 TAB 0 Refills Prov: TERZIANANJALI P.A. 05/07/17 Patient Instructions: Pharyngitis Additional Instructions: I discussed my findings with the patient. All questions and concerns have been answered. Treatment and medication compliance have been addressed. I advised the patient that they need to follow up with PMD in 3-5 days. Return to ED if pain remains or worsens, cough worsens or remains, you notice blood in your sputum, you notice wheezing, you experience a fever, or if needed for any reason. Patient verbalized understanding of discharge instructions. ANJALI MEJIAS May 07, 2017 20:46
== END 2017-05-07 20:07 | disposition home or self-care (01) ==
LOC: EMR 19:37
DX: J02.9 Acute pharyngitis, unspecified (principal); J45.909 Unspecified asthma, uncomplicated; K21.9 Gastro-esophageal reflux disease without esophagitis
CPT/HCPCS: 99284

== ENCOUNTER 2017-06-23 15:47 | Emergency (ER) | payer OTHER ==
[~2017-06-23] VITALS: Ht 165.1 cm; Wt 113.9 kg
[~2017-06-23 15:47] MED LIST changes: +PSEUDOEPHEDRINE30 MG PO; +ROBITUSSIN COU237 M1 PO
[2017-06-23 16:24] VITALS: BP 144/66
--- NOTE | 2017-06-23 16:26 | Emergency Room Report ---
History of Present Illness General Chief Complaint: Upper Respiratory Illness Source: Patient Present Illness HPI Patient presents with cough and chest pain for 4 days. She saw her doctor on Saturday and was given a prescription for cough syrup. She's been coughing violently today. The pain is somewhat pleuritic and feels like pressure. She rates it a 6/10 at the moment (she told RN 8/10). She does have a history of asthma and has occasionally heard herself wheezing. She is coughing up green material without any blood. She had fever 101 on Saturday. When the patient was in triage evaluated 200 according to the triage nurse which was brought back to her bed her heart rate was down in the 100s. The patient is on control. She denies any clots in the past. Her last period was June 15 and normal for her. She denies any dysuria, vomiting, diarrhea. Rest of family with URI symptoms (one with negative CXR). Allergies: Coded Allergies: No Known Allergies (Unverified , 11/17/14) Patient History Past Medical History: see triage record Social History: Denies: smoking Social History Narrative with family - works at a [employer] Last Menstrual Period: One week ago Now: No Reviewed Nursing Documentation: PMH: Agreed, PSxH: Agreed Nursing Documentation-PMH Hx Asthma: Yes - Bronchitis Hx Gastrointestinal Problems: Yes - Acid reflux Review of Systems All Other Systems: negative except mentioned in HPI Physical Exam Vital Signs Date Time Temp Pulse Resp B/P (MAP) Pulse Ox O2 Delivery O2 Flow Rate FiO2 06/23/17 16:04 98.4 218 16 127/84 98 Room Air Sp02 EP Interpretation: reviewed, normal General Appearance: well appearing, no apparent distress, GCS 15 Head: normocephalic Eyes: bilateral eye normal inspection, bilateral eye PERRL ENT: moist mucus membranes Neck: supple Respiratory: chest non-tender, lungs clear, normal breath sounds Cardiovascular #1: regular rate, rhythm, no edema Cardiovascular #2: 2+ radial (R) Gastrointestinal: normal inspection, normal bowel sounds, non tender, no mass, non-distended, overweight Musculoskeletal: back normal, gait/station normal, normal range of motion, no calf tenderness Neurologic: alert, oriented x3, grossly normal Psychiatric: mood/affect normal Skin: normal inspection, warm/dry Medical Decision Making Diagnostic Impression: Primary Impression: Upper respiratory infection Qualified Codes: J06.9 - Acute upper respiratory infection, unspecified Additional Impressions: UTI (urinary tract infection) Qualified Codes: N30.00 - Acute cystitis without hematuria Chest pain Qualified Codes: R07.9 - Chest pain, unspecified ER Course Patient presents with upper respiratory infection symptoms and a tachyarrhythmia. Differential includes pneumonia, SVT, bronchitis dehydration a pulmonary embolus amongst others. Evaluation will be with EKG, chest x-ray and labs. She will receive IV hydration, albuterol and also Tylenol. D-dimer not ordered as clinical suspicion low for PE (based on physical exam, though on BCP has some risk). EKG without injury or R strain. CXR without infiltrate. Labs with elevated WBC and pyuria. Antibiotics begun. Improved with treatment. Pain resolved. Patient stable for outpatient observation and treatment. Laboratory Tests Test 06/23/17 16:50 White Blood Count 12.4 K/UL (4.8-10.8) H Red Blood Count 4.46 M/UL (4.20-5.40) Hemoglobin 11.5 G/DL (12.0-16.0) L Hematocrit 36.9 % (37.0-47.0) L Mean Corpuscular Volume 83 FL (80-99) Mean Corpuscular Hemoglobin 25.7 PG (27.0-31.0) L Mean Corpuscular Hemoglobin Concent 31.2 G/DL (32.0-36.0) L Red Cell Distribution Width 13.4 % (11.6-14.8) Platelet Count 280 K/UL (150-450) Mean Platelet Volume 6.8 FL (6.5-10.1) Neutrophils (%) (Auto) 73.2 % (45.0-75.0) Lymphocytes (%) (Auto) 18.7 % (20.0-45.0) L Monocytes (%) (Auto) 6.4 % (1.0-10.0) Eosinophils (%) (Auto) 0.7 % (0.0-3.0) Basophils (%) (Auto) 1.1 % (0.0-2.0) Prothrombin Time 9.1 SEC (9.30-11.50) L Prothrombin Time INR 0.9 (0.9-1.1) PTT 25 SEC (23-33) Urine Color Pale yellow Urine Appearance Slightly cloudy Urine pH 5 (4.5-8.0) Urine Specific [place] 1.015 (1.005-1.035) Urine Protein Negative (NEGATIVE) Urine Glucose (UA) Negative (NEGATIVE) Urine Ketones Negative (NEGATIVE) Urine Occult Blood 2+ (NEGATIVE) H Urine Nitrite Negative (NEGATIVE) Urine Bilirubin Negative (NEGATIVE) Urine Urobilinogen Normal MG/DL (0.0-1.0) Urine Leukocyte Esterase 1+ (NEGATIVE) H Urine RBC 2-4 /HPF (0 - 2) H Urine WBC 5-10 /HPF (0 - 2) H Urine Squamous Epithelial Cells Many /LPF (NONE/OCC) H Urine Bacteria Many /HPF (NONE) H Urine HCG, Qualitative Negative Sodium Level 139 MMOL/L (136-145) Potassium Level 3.9 MMOL/L (3.5-5.1) Chloride Level 104 MMOL/L (98-107) Carbon Dioxide Level 23 MMOL/L (21-32) Anion Gap 12 mmol/L (5-15) Blood Urea Nitrogen 5 mg/dL (7-18) L Creatinine 0.7 MG/DL (0.55-1.30) Estimate Glomerular Filtration Rate > 60 mL/min (>60) Glucose Level 115 MG/DL (74-106) H Calcium Level 8.7 MG/DL (8.5-10.1) Total Bilirubin 0.2 MG/DL (0.2-1.0) Aspartate Amino Transferase (AST) 22 U/L (15-37) Alanine Aminotransferase (ALT) 19 U/L (12-78) Alkaline Phosphatase 74 U/L (46-116) Total Protein 8.1 G/DL (6.4-8.2) Albumin 3.0 G/DL (3.4-5.0) L Globulin 5.1 g/dL Albumin/Globulin Ratio 0.6 (1.0-2.7) L EKG Diagnostic Results Rate: tachycardiac ST Segments: no acute changes Rhythm Strip Diag. Results EP Interpretation: yes Rhythm: no PVC's, no ectopy, other - Sinus tachycardia Last Vital Signs Date Time Temp Pulse Resp B/P (MAP) Pulse Ox O2 Delivery O2 Flow Rate FiO2 06/23/17 19:35 98.5 82 16 106/74 100 Room Air 21 Status: improved Disposition: HOME, SELF-CARE Condition: Improved Scripts Guaifenesin/Codeine Phos* (ROBITUSSIN AC*) 118 Ml Liquid 1 TSP ORAL Q6H Y for For Cough, #60 ML 0 Refills Prov: Gabriel Patel M.D. 06/23/17 Levofloxacin* (LEVAQUIN*) 500 Mg Tablet 500 MG ORAL DAILY, #7 TAB Prov: Gabriel Patel M.D. 06/23/17 Albuterol Sulfate* (ALBUTEROL SULFATE MDI*) 8.5 Gm Hfa.aer.ad 2 PUFF INH Q6H, #1 EA 1 Refill Prov: Gabriel Patel M.D. 06/23/17 Gabriel Patel M.D. Jun 23, 2017 16:26
[2017-06-23] MEDS ORDERED: Iron PO (16:30)
[2017-06-23] MEDS ORDERED: Acetaminophen 500mg (ES) tab ORAL ONE (16:30)
[2017-06-23] MEDS ORDERED: NEXIUM40 MG ORAL (16:30)
[2017-06-23] MEDS ORDERED: Albuterol ud Inhalation HHN ONE (16:30)
[2017-06-23 17:26] LABS: APPEARANCE,URINE SLIGHTLY CLOUDY; BASOPHILS % (AUTO) 1.1 % (0.0-2.0); EOSINOPHILS % (AUTO) 0.7 % (0.0-3.0); KETONES,URINE NEGATIVE (NEGATIVE); LEUKOCYTE ESTERASE ,URINE 1+ (NEGATIVE); LYMPHOCYTES % (AUTO) 18.7 % (20.0-45.0); MEAN CORPUSCULAR HEMOGLOBIN 25.7 PG (27.0-31.0); MEAN CORPUSCULAR HGB CONC 31.2 G/DL (32.0-36.0); MEAN CORPUSCULAR VOLUME 83 FL (80-99); MEAN PLATELET VOLUME 6.8 FL (6.5-10.1); MONOCYTES % (AUTO) 6.4 % (1.0-10.0); NEUTROPHILS % (AUTO) 73.2 % (45.0-75.0); NITRITE,URINE NEGATIVE (NEGATIVE); PH,URINE 5 (4.5-8.0); PLATELET COUNT 280 K/UL (150-450); PROTEIN,URINE NEGATIVE (NEGATIVE); RED BLOOD COUNT 4.46 M/UL (4.20-5.40); RED CELL DISTRIBUTION WIDTH 13.4 % (11.6-14.8); UROBILINOGEN,URINE NORMAL MG/DL (0.0-1.0); WHITE BLOOD COUNT 12.4 K/UL (4.8-10.8)
[2017-06-23 17:36] LABS: BACTERIA,URINE MANY /HPF; SQUAMOUS EPITHELIAL CELL,UR MANY /LPF (NONE/OCC)
[2017-06-23 17:45] LABS: INR 0.9 (0.9-1.1); PROTHROMBIN TIME 9.1 SEC (9.30-11.50)
[2017-06-23] MEDS ORDERED: cefTRIAXone 1 GM in NS 55 ML IVPB ONE (18:00)
[2017-06-23 18:09] LABS: ANION GAP 12 mmol/L (5-15); CALCIUM 8.7 MG/DL (8.5-10.1); CARBON DIOXIDE 23 MMOL/L (21-32); CHLORIDE 104 MMOL/L (98-107); CREATININE 0.7 MG/DL (0.55-1.30); GLOMERULAR FILTRATION RATE > 60 mL/min (>60); POTASSIUM 3.9 MMOL/L (3.5-5.1); SODIUM 139 MMOL/L (136-145)
[2017-06-23 18:13] LABS: ALANINE AMINOTRANSFERASE 19 U/L (12-78); ALBUMIN/GLOBULIN RATIO 0.6 (1.0-2.7); ASPARTATE AMINO TRANSFERASE 22 U/L (15-37); TOTAL PROTEIN 8.1 G/DL (6.4-8.2)
[2017-06-23 19:20] VITALS: BP 106/74
[2017-06-23] MEDS ORDERED: ALBUTEROL SULF8.5 GM INH (19:24)
[2017-06-23] MEDS ORDERED: LEVAQUIN500 MG ORAL (19:24)
[2017-06-23] MEDS ORDERED: GUAIFENESIN-CO118 M1 ORAL (19:24)
[2017-06-23 19:35] VITALS: BP 106/74
--- NOTE | 2017-06-24 10:34 | Diagnostic Imaging Report ---
Indication: COUGH Technique: One view of the chest Comparison: 07/26/2015 Findings: Lungs and pleural spaces are clear. Heart size is normal. No significant change Impression: No acute process This agrees with the preliminary interpretation provided by the emergency room physician
--- NOTE | 2017-06-26 08:41 | Cardiology Report ---
APPROVED REPORT EKG Measurement Heart [id number] Sinus tachycardia Moderate voltage criteria for LVH, may be normal variant Nonspecific T wave abnormality Abnormal ECG
== END 2017-06-23 19:35 | disposition home or self-care (01) ==
LOC: EMR 18:57
DX: J06.9 Acute upper respiratory infection, unspecified (principal); N39.0 Urinary tract infection, site not specified; R07.9 Chest pain, unspecified
CPT/HCPCS: 36415; 71010; 80053; 81003; 81025; 85025; 85610; 85730; 87086; 93005; 94640; 96361; 96365; 99284; J0696

== ENCOUNTER 2018-08-10 16:08 | Emergency (ER) | payer OTHER ==
[~2018-08-10] VITALS: Ht 162.6 cm; Wt 108.9 kg
[~2018-08-10 16:08] MED LIST changes: +GUAIFENESIN-CO118 M1 ORAL; +Iron PO; +LEVAQUIN500 MG ORAL; +NEXIUM40 MG ORAL
--- NOTE | 2018-08-10 16:55 | NUR ---
ED Nurse Note: Patient walked in c/o flu like symptoms x 2 weeks. Reports a sore throat, headache and nasal congestion. pt states shes uses dayquil and nightquil to help with her symptoms. pt denies nausea and vomiting. will continue to monitor and wait for further orders
[2018-08-10] MEDS ORDERED: FLUTICASONE PRO16 G1 NASAL (17:07)
[2018-08-10] MEDS ORDERED: TYLENOL EXTRA500 MG ORAL (17:07)
[2018-08-10] MEDS ORDERED: SUDAFED PE PRE1 EACH PO (17:07)
--- NOTE | 2018-08-10 17:08 | Emergency Room Report ---
History of Present Illness General Chief Complaint: Flu Like Symptoms Source: Patient, Medical Record Present Illness HPI 27-year-old female patient presents the ER complaining of "cold symptoms" for the past 2 weeks. Reports symptoms have improved however they are still present. Complaining of cough with sputum. Denies hemoptysis. Reports feels warm at home however did not take her temperature. Patient currently afebrile in the ER. Reports nasal congestion. States has been taking bufc-elu-lekmpel medications. States has not taken any Tylenol. Denies vomiting or diarrhea. Denies recent travel. Denies calf pain. Reports sick contacts at home. Denies chest pain, shortness of breath. Reports history of asthma, states has not had to use her inhaler, denies breathing symptoms at this time. Denies abdominal pain. Allergies: Coded Allergies: No Known Allergies (Unverified , 11/17/14) Patient History Past Medical History: see triage record Last Menstrual Period: 07/14/2018 Now: No : 0 Para: 0 Reviewed Nursing Documentation: PMH: Agreed; PSxH: Agreed Nursing Documentation-PMH Hx Asthma: Yes - Bronchitis Hx Gastrointestinal Problems: Yes - Acid reflux Review of Systems All Other Systems: negative except mentioned in HPI Physical Exam Vital Signs Date Time Temp Pulse Resp B/P (MAP) Pulse Ox O2 Delivery O2 Flow Rate FiO2 08/10/18 16:44 98.4 75 18 123/74 96 Room Air Sp02 EP Interpretation: reviewed, normal General Appearance: well appearing, no apparent distress, alert, GCS 15, non- toxic Head: normocephalic, atraumatic, other - No frontal or maxillary sinus tenderness to palpation Eyes: bilateral eye normal inspection, bilateral eye PERRL ENT: hearing grossly normal, normal pharynx, no angioedema, normal voice, TMs + canals normal, uvula midline, moist mucus membranes, nasal congestion Neck: full range of motion, no meningismus, no bony tend Respiratory: lungs clear, normal breath sounds, no rhonchi, no respiratory distress, no accessory muscle use, no wheezing, speaking full sentences Cardiovascular #1: regular rate, rhythm, no edema Gastrointestinal: non tender, soft, no mass, non-distended, no guarding, no rebound Musculoskeletal: back normal, digits/nails normal, gait/station normal, normal range of motion, non-tender Neurologic: alert, oriented x3, responsive, motor strength/tone normal, sensory intact Psychiatric: mood/affect normal Skin: no rash Lymphatic: no adenopathy Medical Decision Making PA Attestation Dr. Francis is my supervising Physician whom patient management has been discussed with. Diagnostic Impression: Primary Impression: Upper respiratory infection ER Course Pt presents to ED c/o cough and congestion and "cold symptoms". DDX considered but are not limited to influenza, viral URI, pneumonia, strep throat, rhinitis, sinusitis, otitis media, otitis externa. VITAL SIGNS are WNL, patient is afebrile. ER COURSE: PE essentially benign. Lungs clear to auscultation, no wheezes, rhonci or rales. patient afebrile. Low suspicion for pneumonia, will not order CXR at this time. no tonsillar exudates, no pharyngeal erythema, history of cough, no fever, no stridor, uvula midline, low suspicion for peritonsillar abscess. Likely viral etiology of symptoms. Symptomatic treatment. drink plenty of fluids. Salt water gargles for sore throat. Followup with PCP for further treatment and/or referral as needed. ER precautions given. DISCHARGE: -Rx given for Tylenol/Acetaminophen -Rx given for Sudafed. -Rx given for fluticasone At this time pt is stable for d/c to home. Patient is resting comfortably, in no acute distress, nontoxic appearing. Patient to take medications as instructed Will provide with patient care instructions and any necessary prescriptions. Care plan and follow-up instructions provided. Patient instructed to follow-up with primary care provider in 3 - 5 days. Patient questions asked and answered. Patient reports understanding and agreement to treatment plan. ER precautions given. Patient instructed to return to ER immediately for any new or worsening of symptoms including but not limited to increasing SOB, persistent fever, intractable vomiting. - Please note that this Emergency Department Report was dictated using [employer] cleaner technology software, occasionally this can lead to erroneous entry secondary to interpretation by the dictation equipment. Last Vital Signs Date Time Temp Pulse Resp B/P (MAP) Pulse Ox O2 Delivery O2 Flow Rate FiO2 08/10/18 16:44 98.4 75 18 123/74 96 Room Air Disposition: HOME, SELF-CARE Condition: Stable Scripts Fluticasone Propionate* (FLUTICASONE PROPIONATE*) 16 Gm [place].susp 1 SPRAY NASAL TWICE A DAY, #16 GM Prov: Mitchell Lane 08/10/18 Acetaminophen* (TYLENOL EXTRA STRENGTH*) 500 Mg Tablet 500 MG ORAL Q8H PRN for Prn Headache/Temp > 101, #30 TAB 0 Refills Prov: Mitchell Lane 08/10/18 D-Methorphan/PE/Acetaminophen (Sudafed PE Pressure+Pain+Cough) 1 Each Tablet 1 EACH PO TID, #24 TAB Prov: Mitchell Lane 08/10/18 Patient Instructions: Upper Respiratory Infection, Adult, [id number] Additional Instructions: Followup with primary care provider in 2-3 days. Take medications as directed. Patient questions asked and answered. ER precautions given, patient instructed to return to ER immediately for any new or worsening of symptoms. Mitchell Lane Aug 10, 2018 17:07
[2018-08-10 17:11] VITALS: BP 123/74
--- NOTE | 2018-08-10 17:18 | NUR ---
ED Nurse Note: pt dc per ED order, dc and prescription education provided. pt verbalized underestanding, id band removed, vss, pt left with all belongings, pt instructed to follow with pmd if symptoms reoccur
== END 2018-08-10 17:18 | disposition home or self-care (01) ==
LOC: EMR 17:00
DX: J06.9 Acute upper respiratory infection, unspecified (principal); J45.909 Unspecified asthma, uncomplicated; K21.9 Gastro-esophageal reflux disease without esophagitis
CPT/HCPCS: 99283

== ENCOUNTER 2018-10-13 18:43 | Emergency (ER) | payer OTHER ==
[~2018-10-13] VITALS: Ht 165.1 cm; Wt 127.5 kg
[~2018-10-13 18:43] MED LIST changes: +FLUTICASONE PRO16 G1 NASAL; +SUDAFED PE PRE1 EACH PO; +TYLENOL EXTRA500 MG ORAL
[2018-10-13] MEDS ORDERED: CLOTRIMAZOLE VA21 GM VAGIN (18:55)
[2018-10-13 19:00] VITALS: BP 138/88
--- NOTE | 2018-10-13 19:00 | NUR ---
ED Nurse Note: Pt came in ER and c/o pelvic pain for 3 days, and states she had unprotected sex a week ago. Pt is AO x 4times, VSS, on room air no distress. CHERIED seen Pt at bedside.
[2018-10-13 19:55] VITALS: BP 129/77
--- NOTE | 2018-10-13 19:55 | NUR ---
ER DISCHARGE NOTE: Patient is cleared to be discharged per ERMD, pt is aox4, on room air, with stable vital signs. pt was given dc and prescription instructions, pt was able to verbalize understanding, pt id band removed without complications. pt is able to ambulate with steady gait. pt took all belongings.
[2018-10-13 20:20] LABS: APPEARANCE,URINE CLEAR; BILIRUBIN, URINE NEGATIVE (NEGATIVE); COLOR,URINE PALE YELLOW; GLUCOSE, URINE (UA) NEGATIVE (NEGATIVE); KETONES,URINE NEGATIVE (NEGATIVE); LEUKOCYTE ESTERASE ,URINE NEGATIVE (NEGATIVE); NITRITE,URINE NEGATIVE (NEGATIVE); PH,URINE 5 (4.5-8.0); PROTEIN,URINE NEGATIVE (NEGATIVE); UROBILINOGEN,URINE NORMAL MG/DL (0.0-1.0)
[2018-10-13] MEDS ORDERED: Phenazopyridine 200mg tab ORAL ONE (20:45)
--- NOTE | 2018-10-13 20:49 | Emergency Room Report ---
History of Present Illness General Chief Complaint: Pelvic Pain Source: Patient, Medical Record Present Illness HPI 28-year-old female presents to the emergency department complaining of 6 out of 10 in severity lower abdominal/pelvic cramping pain 2-3 days. Denies abdominal tenderness. Patient reports that she had unprotected intercourse approximately one week ago and is concerned for . Patient states that she is not taking a form of control she denies history of STI she also denies suspicion for STI she denies vaginal discharge, vaginal bleeding, swollen tender lymph nodes at nausea, vomiting, fevers, chills or joint pain. Allergies: Coded Allergies: No Known Allergies (Unverified , 10/13/18) Patient History Past Medical History: see triage record Past Surgical History: none Pertinent Family History: none Last Menstrual Period: SEP 2018 Reviewed Nursing Documentation: PMH: Agreed; PSxH: Agreed Nursing Documentation-PMH Past Medical History: No History, Except For Hx Asthma: Yes - Bronchitis Hx Gastrointestinal Problems: Yes - Acid reflux Review of Systems All Other Systems: negative except mentioned in HPI Physical Exam Vital Signs Date Time Temp Pulse Resp B/P (MAP) Pulse Ox O2 Delivery O2 Flow Rate FiO2 10/13/18 18:50 98.1 98 16 146/89 97 Room Air Sp02 EP Interpretation: reviewed, normal General Appearance: no apparent distress, alert, GCS 15, non-toxic Head: normocephalic, atraumatic Eyes: bilateral eye normal inspection, bilateral eye PERRL ENT: hearing grossly normal, normal voice Neck: full range of motion Respiratory: lungs clear, normal breath sounds, speaking full sentences Cardiovascular #1: regular rate, rhythm Gastrointestinal: normal bowel sounds, non tender, soft, non-distended, no guarding Genitourinary: normal inspection, no CVA tenderness Musculoskeletal: back normal, gait/station normal, normal range of motion, non- tender Neurologic: alert, oriented x3, responsive, motor strength/tone normal, sensory intact, normal gait, speech normal, grossly normal Psychiatric: judgement/insight normal Skin: normal color, no rash, warm/dry, well hydrated Lymphatic: no adenopathy Medical Decision Making PA Attestation Dr. Patel is my supervising Physician whom patient management has been discussed with. Diagnostic Impression: Primary Impression: Abdominal cramping ER Course 28-year-old female presents to the emergency department complaining of 6 out of 10 in severity lower abdominal/pelvic cramping pain 2-3 days. Denies abdominal tenderness. Patient reports that she had unprotected intercourse approximately one week ago and is concerned for . Patient states that she is not taking a form of control she denies history of STI she also denies suspicion for STI she denies vaginal discharge, vaginal bleeding, swollen tender lymph nodes at nausea, vomiting, fevers, chills or joint pain. Ddx considered but are not limited to Diverticulitis, acute appy, diarrhea,UC, PUD, GE, pancreatitis, gallstone, ovarian torsion, ectopic , PID tubo-ovarian abscess. Vital signs: are WNL, pt. is afebrile H&PE are most consistent with Female presenting with abdominal pain, NAD, non- toxic with recent unprotected intercourse. ORDERS: -UA: Unremarkable -URINE HCG: Negative ED INTERVENTIONS: - Pyridium -I do not identify an emergent condition at this time. With current presentation , pt. is stable for close outpatient follow up and conservative treatment. D/ w pt. to return promptly to ED with worsening or new symptoms.- Pt. verbalizes' understanding and agreement with proposed treatment plan.proposed treatment plan. DISCHARGE: At this time pt. is stable for d/c to home. Will provide printed patient care instructions, and any necessary prescriptions. Care plan and follow up instructions have been discussed with the patient prior to discharge. Labs Test 10/13/18 19:35 Urine Color Pale yellow Urine Appearance Clear Urine pH 5 (4.5-8.0) Urine Specific [place] 1.005 (1.005-1.035) Urine Protein Negative (NEGATIVE) Urine Glucose (UA) Negative (NEGATIVE) Urine Ketones Negative (NEGATIVE) Urine Blood Negative (NEGATIVE) Urine Nitrite Negative (NEGATIVE) Urine Bilirubin Negative (NEGATIVE) Urine Urobilinogen Normal MG/DL (0.0-1.0) Urine Leukocyte Esterase Negative (NEGATIVE) Urine HCG, Qualitative Negative (NEGATIVE) Last Vital Signs Date Time Temp Pulse Resp B/P (MAP) Pulse Ox O2 Delivery O2 Flow Rate FiO2 10/13/18 18:50 98.1 98 16 146/89 97 Room Air Disposition: HOME, SELF-CARE Condition: Stable Scripts Naproxen* (NAPROXEN*) 500 Mg Tablet. 500 MG ORAL TWICE A DAY for 7 Days, #14 TAB Prov: Bruna Messina 10/13/18 Departure Forms: Return to Work Return to Work Date: Oct 16, 2018 Work Restrictions: None Other Restrictions: May return Sooner if Symptoms have resolved. Return to Full Activity: Oct 16, 2018 Patient Instructions: Pelvic Pain, Female Bruna Messina Oct 13, 2018 20:49
[2018-10-13] MEDS ORDERED: NAPROXEN500 M1 ORAL (20:51)
== END 2018-10-13 19:55 | disposition home or self-care (01) ==
LOC: EMR 19:12
DX: R10.30 Lower abdominal pain, unspecified (principal); J45.909 Unspecified asthma, uncomplicated; K21.9 Gastro-esophageal reflux disease without esophagitis
CPT/HCPCS: 81003; 81025; 99283

== ENCOUNTER 2019-07-29 14:06 | Emergency (ER) | payer OTHER ==
[~2019-07-29] VITALS: Ht 165.1 cm; Wt 114.3 kg
[~2019-07-29 14:06] MED LIST changes: +CLOTRIMAZOLE VA21 GM VAGIN; +NAPROXEN500 M1 ORAL
--- NOTE | 2019-07-29 14:30 | NUR ---
walked in from home with family due to chest pain r/t cough, congestion x1 week.
[2019-07-29 15:26] VITALS: BP 119/77
[2019-07-29 15:37] LABS: APPEARANCE,URINE CLEAR; BILIRUBIN, URINE NEGATIVE (NEGATIVE); GLUCOSE, URINE (UA) NEGATIVE (NEGATIVE); KETONES,URINE NEGATIVE (NEGATIVE); LEUKOCYTE ESTERASE ,URINE NEGATIVE (NEGATIVE); NITRITE,URINE NEGATIVE (NEGATIVE); PH,URINE 5 (4.5-8.0); PROTEIN,URINE 2+ (NEGATIVE); UROBILINOGEN,URINE NORMAL MG/DL (0.0-1.0)
[2019-07-29 15:42] LABS: COLOR,URINE YELLOW
--- NOTE | 2019-07-29 15:55 | Emergency Room Report ---
History of Present Illness General Chief Complaint: Flu Like Symptoms Source: Patient Present Illness HPI 28-year-old female with history here complaining of 1 week of cough and congestion. Reports that symptoms started with fever and chills, sore throat. Has not taken medication for symptom relief. Has history of asthma control. Denies smoking tobacco however does admit to smoking marijuana daily basis. Denies abdominal pain, nausea vomiting, headache medications at this time. Patient is also here with 3 siblings who presented with similar symptoms. Denies recent travel. Patient also requests to be tested for . Denies urinary frequency or dysuria at this time. Allergies: Coded Allergies: No Known Allergies (Unverified , 10/13/18) Patient History Past Medical History: see triage record Past Surgical History: none Pertinent Family History: none Last Menstrual Period: Jul 15, 2019 Now: No : 0 Para: 0 Immunizations: UTD Reviewed Nursing Documentation: PMH: Agreed; PSxH: Agreed Nursing Documentation-PMH Past Medical History: No History, Except For Hx Cardiac Problems: No - bronchitis Hx Asthma: Yes - Bronchitis Hx Diabetes: Yes - prediabetes Hx Gastrointestinal Problems: Yes - Acid reflux Review of Systems All Other Systems: negative except mentioned in HPI Physical Exam Vital Signs Date Time Temp Pulse Resp B/P (MAP) Pulse Ox O2 Delivery O2 Flow Rate FiO2 07/29/19 14:24 99.9 105 19 119/77 (91) 97 Room Air Sp02 EP Interpretation: reviewed, normal General Appearance: no apparent distress, alert, GCS 15, non-toxic Head: normocephalic, atraumatic Eyes: bilateral eye normal inspection, bilateral eye PERRL ENT: hearing grossly normal, normal pharynx, no angioedema, normal voice Neck: full range of motion, supple, thyroid normal, supple/symm/no masses Respiratory: chest non-tender, lungs clear, normal breath sounds, no rhonchi, speaking full sentences Cardiovascular #1: regular rate, rhythm, no edema, no murmur, normal capillary refill Gastrointestinal: normal bowel sounds, non tender, soft, no mass Genitourinary: no CVA tenderness Musculoskeletal: back normal Neurologic: alert, motor strength/tone normal, oriented x3, sensory intact, responsive, speech normal Skin: no rash Lymphatic: no adenopathy Medical Decision Making PA Attestation All my diagnosis and treatment plans were reviewed ad discussed with my supervising physician Dr. Francis Diagnostic Impression: Primary Impression: Atypical pneumonia Additional Impression: Negative test ER Course 28-year-old female with history here complaining of 1 week of cough and congestion. Reports that symptoms started with fever and chills, sore throat. Has not taken medication for symptom relief. Has history of asthma control. Denies smoking tobacco however does admit to smoking marijuana daily basis. Denies abdominal pain, nausea vomiting, headache medications at this time. Patient is also here with 3 siblings who presented with similar symptoms. Denies recent travel. Patient also requests to be tested for . Denies urinary frequency or dysuria at this time. Ddx considered but are not limited to: strep pharyngitis, URI, tonsillitis, peritonsillar abscess, influneza Vital signs: are WNL, pt. is afebrile H&PE are most consistent with: Atypical pneumonia, negative test ORDERS: UA, urine preg, Phenergan, albuterol,. Azithromycin. Patient reports not to be treated with penicillin as usually penicillin family gives her a yeast infection. ED INTERVENTIONS: None required at this time. DISCHARGE: At this time pt. is stable for d/c to home. Will provide printed patient care instructions, and any necessary prescriptions. Care plan and follow up instructions have been discussed with the patient prior to discharge. Take medication as directed, follow-up with your primary care provider, if worsening symptoms return to the emergency room Last Vital Signs Date Time Temp Pulse Resp B/P (MAP) Pulse Ox O2 Delivery O2 Flow Rate FiO2 07/29/19 15:26 105 19 Room Air 07/29/19 15:26 99.9 119/77 97 Disposition: HOME, SELF-CARE Condition: Stable Scripts Albuterol Sulfate (VENTOLIN HFA) 18 Gm Hfa.aer.ad 2 PUFFS INH EVERY 6 HOURS, #18 GM 0 Refills Prov: Serge William 07/29/19 Promethazine Hcl (PROMETHAZINE HCL*) 6.25 Mg/5 Ml Syrup 5 ML ORAL Q6H, #120 ML 0 Refills Prov: Serge William 07/29/19 Azithromycin* (ZITHROMAX*) 250 Mg Tablet 250 MG ORAL DAILY, #6 TAB 0 Refills Take two tables once daily for 1 day, then one tablet once daily for 4 days. Prov: Serge William 07/29/19 Referrals: NON PHYSICIAN (PCP) Patient Instructions: Upper Respiratory Infection, Adult, [id number] Additional Instructions: Take medication as directed, follow-up with your primary care provider, if worsening symptoms return to the emergency room Serge William Jul 29, 2019 15:55
[2019-07-29] MEDS ORDERED: ZITHROMAX250 MG ORAL (15:57)
[2019-07-29] MEDS ORDERED: PROMETHAZI6.25 MG/1 ORAL (15:57)
[2019-07-29] MEDS ORDERED: VENTOLIN HFA18 GM INH (15:57)
[2019-07-29 16:01] VITALS: BP 119/77
--- NOTE | 2019-07-29 16:01 | NUR ---
ER DISCHARGE NOTE: Patient is cleared to be discharged per Serge ERICKSON. Patient is AxO x 4, VSS Patient verbalized understanding of medication and discharge instructions. ID band removed. Patient is able to ambulate with steady gait and took all belongings.
== END 2019-07-29 16:01 | disposition home or self-care (01) ==
LOC: EMR 14:55
DX: J18.9 Pneumonia, unspecified organism (principal); F12.90 Cannabis use, unspecified, uncomplicated; K21.9 Gastro-esophageal reflux disease without esophagitis; R73.03 Prediabetes
CPT/HCPCS: 81003; 81025; Z7502; 99283

== ENCOUNTER 2019-09-29 20:38 | Emergency (ER) | payer OTHER ==
[~2019-09-29] VITALS: Ht 165.1 cm; Wt 112.5 kg
[~2019-09-29 20:38] MED LIST changes: +PROMETHAZI6.25 MG/1 ORAL; +VENTOLIN HFA18 GM INH; +ZITHROMAX250 MG ORAL
[2019-09-29 21:19] VITALS: BP 128/81
--- NOTE | 2019-09-29 21:22 | NUR ---
ED Nurse Note: Patient walked in to ER c/o cough, congestion since Saturday. Patient presented with slightly elevated temp 100.9, other VSS at this time.
[2019-09-29] MEDS ORDERED: PROMETHAZINE-C118 M1 ORAL (21:36)
[2019-09-29] MEDS ORDERED: IBUPROFEN600 MG ORAL (21:36)
[2019-09-29] MEDS ORDERED: PREDNISONE20 MG ORAL (21:36)
[2019-09-29] MEDS ORDERED: ALBUTEROL SULF8.5 GM INH (21:36)
--- NOTE | 2019-09-29 21:36 | Emergency Room Report ---
History of Present Illness General Chief Complaint: Upper Respiratory Illness Source: Patient Present Illness [facility] This a 29-year-old female with no past medical history. She presents with complaint of cough, fever, sore throat. Onset for last 2 days. No nausea no vomiting. Worse with exertion. Worse with lying flat. Worse with inspiration. Cough is nonproductive nature. She has been taking supplements and is not helping. 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 Denies any other complaint. Allergies: Coded Allergies: No Known Allergies (Unverified , 10/13/18) Patient History Past Medical History: see triage record, old chart reviewed Past Surgical History: none Pertinent Family History: none Social History: Denies: smoking Last Menstrual Period: 09/10/19 Now: No Immunizations: UTD Reviewed Nursing Documentation: PMH: Agreed; PSxH: Agreed Nursing Documentation-PMH Past Medical History: No History, Except For Hx Cardiac Problems: No - bronchitis Hx Asthma: Yes - Bronchitis Hx Diabetes: Yes - prediabetes Hx Gastrointestinal Problems: Yes - Acid reflux Review of Systems Constitutional: Reports: chills, fever Eye: Denies: eye pain, blurred vision ENT: Reports: nose congestion, throat pain; Denies: ear pain, throat swelling Respiratory: Reports: cough, shortness of breath Cardiovascular: Denies: chest pain, palpitations Gastrointestinal: Denies: abdominal pain, diarrhea, nausea, vomiting Musculoskeletal: Denies: back pain, joint pain Skin: Denies: rash Neurological: Denies: headache, numbness Endocrine: Denies: increased thirst, increased urine Hematologic/Lymphatic: Denies: easy bruising All Other Systems: negative except mentioned in HPI Physical Exam Vital Signs Date Time Temp Pulse Resp B/P (MAP) Pulse Ox O2 Delivery O2 Flow Rate FiO2 09/29/19 20:56 101.8 122 22 128/81 (97) 93 Room Air Vitals with fever and tachycardia. Repeat pulse ox 98% on room air Sp02 EP Interpretation: reviewed, normal General Appearance: well appearing, no apparent distress, alert Head: normocephalic, atraumatic Eyes: bilateral eye PERRL, bilateral eye EOMI ENT: hearing grossly normal, normal pharynx Neck: full range of motion, supple, no meningismus Respiratory: chest non-tender, lungs clear, normal breath sounds Cardiovascular #1: regular rate, rhythm, no murmur Gastrointestinal: normal bowel sounds, non tender, no mass, no organomegaly, no bruit, non-distended Musculoskeletal: back normal, normal range of motion, gait/station normal Psychiatric: mood/affect normal Medical Decision Making Diagnostic Impression: Primary Impression: Upper respiratory infection Qualified Codes: J06.9 - Acute upper respiratory infection, unspecified ER Course This patient presents with upper respiratory infection. No evidence of any sepsis, meningitis, pneumonia or other serious bacterial infection. Will discharge home. Last Vital Signs Date Time Temp Pulse Resp B/P (MAP) Pulse Ox O2 Delivery O2 Flow Rate FiO2 09/29/19 21:19 100.9 22 128/81 93 Room Air 09/29/19 21:19 122 Status: improved Disposition: HOME, SELF-CARE Condition: Stable Scripts Codeine/Promethazine Hcl* (PROMETHAZINE-CODEINE SYRUP*) 118 Ml Syrup 5 ML ORAL Q6H PRN for For Cough, #240 ML 0 Refills Prov: Harlan Cazares MD 09/29/19 Prednisone* (PREDNISONE*) 20 Mg Tablet 40 MG ORAL DAILY, #10 TAB Prov: Harlan Cazares MD 09/29/19 Ibuprofen* (MOTRIN*) 600 Mg Tablet 600 MG ORAL THREE TIMES A DAY, #30 TAB 0 Refills Prov: Harlan Cazares MD 09/29/19 Albuterol Sulfate* (ALBUTEROL SULFATE MDI*) 8.5 Gm Hfa.aer.ad 2 PUFF INH Q4H PRN for cough/wheezing, #1 EA 0 Refills Prov: Harlan Cazares MD 09/29/19 Patient Instructions: Upper Respiratory Infection, Adult Additional Instructions: Rest. Increase fluids. Follow-up with your doctor in 7 days. Return if symptoms worsen. Harlan Cazares MD Sep 29, 2019 21:36
[2019-09-29 21:39] VITALS: BP 128/81
--- NOTE | 2019-09-29 21:39 | NUR ---
ED Nurse Note: Pt cleared by health care Provider for discharge. DC instructions/prescription was given and explained to pt and verbalized understanding of teachings. All medical deviecs such as ID band removed. Pt is AAO x4, ambulatory and left with all personal belongings.
== END 2019-09-29 21:40 | disposition home or self-care (01) ==
LOC: EMR 21:40
DX: J06.9 Acute upper respiratory infection, unspecified (principal); K21.9 Gastro-esophageal reflux disease without esophagitis
CPT/HCPCS: 99282